=== PATIENT | male | born 1980 | race Caucasian/White ===

== ENCOUNTER → 2020-11-25 11:45 | Outpatient (BNVA) | payer OTHER, SELFPAY | PROVIDERS: Family Provider Family Medicine; Visit Provider Nurse Practitioner Family | DX: R19.7 Diarrhea, unspecified (principal); A09 Infectious gastroenteritis and colitis, unspecified | CPT/HCPCS: 80053; 82274; 85025; 87506; 87635 ==

== ENCOUNTER 2022-10-06 13:25 | Emergency (ER) | payer OTHER, SELFPAY ==
[2022-10-06 14:08] VITALS: BP 108/73; PULSE 72; RESP 16; TEMP 36.7; O2SAT 98; BMI 25.4
--- NOTE | 2022-10-06 17:10 | W.ED.DIZZY ---
HPI - Dizziness General: Chief Complaint: Dizziness Stated Complaint: light head, tightness in face Time Seen by Provider: 10/06/22 16:48 History of Present Illness: HPI Narrative: Patient's been having intermittent dizziness for over the last 9 weeks. Patient has seen urgent care who cleaned his ears out which helped for a day or 2, his primary care provider who put him on steroids which helped for a day or 2, and Dr. Sosa who ordered a bunch of tests and an MRI that he does not know the results of and has not had the MRI yet. Patient presents to the ER today wanting to know more about why he is dizzy and what all the causes could be because he is a worrier per patient. Review of Systems General: Reports: 10 or more systems reviewed and unremarkable except in HPI and below PFSH ED PFSH: Medical History Campylobacter gastroenteritis Social History Smoking and tobacco status: never smoked Second hand smoke exposure: No Smoking risk assessment/counseling performed?: No Alcohol intake: never Desire information about alcohol rehabilitation?: No Counseling given: No Substance/Drug Use: never Desire information about substance/drug rehabilitation?: No Counseling given: No Adopted: No Caregiver/support person: No Lives independently: Yes Household members: none Housing: House Marital status: Single Number of children: 0 Highest education level completed: High School Graduate service: No Current occupational status: employed Physical Exam Const: COMMON NORMALS: no acute distress, average body habitus, patient oriented x3, no limitations, healthy appearing, alert and well nourished HENMT: COMMON NORMALS: normocephalic, atraumatic, hearing grossly normal bilaterally, external ears normal, Normal external nose present and moist oral mucous membranes HEAD & SCALP: normocephalic and atraumatic NOSE: Normal external nose present EXTERNAL EAR: Yes external ears normal Eye: COMMON NORMALS: Equal, round and reactive pupils present, EOMs intact bilaterally, conjunctivae normal and no scleral icterus CONJUNCTIVA: Yes conjunctivae normal PUPIL: Yes Equal, round and reactive pupils present Neck/C-Spine: COMMON NORMALS: full ROM, no lymphadenopathy, supple, no meningeal signs, no JVD and Thyroid normal THYROID: Thyroid normal Chest: COMMONS NORMALS: normal inspection of the chest and normal palpation of entire chest wall Resp: COMMON NORMALS: normal respiratory effort, No retractions, No use of accessory muscles and clear to auscultation bilaterally AUSCULTATION: clear to auscultation bilaterally Cardio: COMMON NORMALS: no JVD, regular rate, regular rhythm, S1 normal heart sound present, S2 normal heart sound present, No gallops present (Cardio), No clicks present (Cardio), No murmurs present (Cardio) and No rub (Cardio) RATE: regular rate RHYTHM: regular rhythm HEART SOUNDS: S1 normal heart sound present and S2 normal heart sound present GI: COMMON NORMALS: Normal to inspection, nondistended, normoactive bowel sounds present, Soft to palpation, non-tender, No hepatosplenomegaly present and no masses PALPATION: Yes Soft to palpation and Yes No hepatosplenomegaly present : COMMON NORMALS: Yes no CVA tenderness BLADDER/KIDNEY EXAM: Yes no CVA tenderness Back/Pelvis: COMMON NORMALS: no CVA tenderness Neuro: COMMON NORMALS: patient oriented x3 SENSORIUM/ORIENTATION: Yes alert MENINGEAL SIGNS: Yes no meningeal signs Course Vital Signs: Vital signs: Vital Signs Temperature 98.1 F 10/06/22 14:08 Pulse Rate 66 10/06/22 17:47 Respiratory Rate 16 10/06/22 14:08 Blood Pressure 138/86 10/06/22 17:47 Pulse Oximetry 98 10/06/22 17:47 Oxygen Delivery Me thod Room Air 10/06/22 17:47 MDM - Dizziness Medical Decision Making Presents to the ER with complaints of vision changes and dizziness over the last 9 weeks. He has been seen multiple providers since then and had multiple test. And has an MRI scheduled. We will to come here to see if there is anything additional that we can do. Lab work was obtained and EKG all of which are benign. This was explained to the patient patient be discharged home to continue current treatment and work-up that is already in progress. Differential Diagnosis Unlikely adverse reaction to drug, benign paroxysmal positional vertigo, orthostatic hypotension, vertebral basilar insufficiency, cerebrovascular accident, acute vestibular neuronitis or transient cerebral ischemia Medical Records I reviewed the patient's medical records. Lab Data I reviewed the patient's lab results. 10/06/22 17:20 10/06/22 17:20 Laboratory Results WBC 6.80 10^3/uL (3.29-11.43) 10/06/22 17:20 RBC 4.80 10^6/uL (3.85-5.65) 10/06/22 17:20 Hgb 15.00 g/dL (11.27-16.99) 10/06/22 17:20 Hct 42.4 % (37-53) 10/06/22 17:20 MCV 88.3 fl (82-101) 10/06/22 17:20 MCH 31.3 pg (27-33) 10/06/22 17:20 MCHC 35.4 g/dL (30-55) 10/06/22 17:20 RDW 12.1 % (12.1-15.1) 10/06/22 17:20 Plt Count 258 10^3/cmm (157-399) 10/06/22 17:20 MPV 10.1 fL (7.4-10.4) 10/06/22 17:20 Neut % (Auto) 61.2 % 10/06/22 17:20 Lymph % (Auto) 26.5 % 10/06/22 17:20 Mclennan % (Auto) 8.5 % 10/06/22 17:20 Eos % (Auto) 2.8 % 10/06/22 17:20 Baso % (Auto) 0.9 % 10/06/22 17:20 Neut # (Auto) 4.16 10^3/uL (1.8-7.7) 10/06/22 17:20 Lymph # (Auto) 1.8 10^3/uL (0.8-4.8) 10/06/22 17:20 Mclennan # (Auto) 0.6 10^3/uL (0.2-0.9) 10/06/22 17:20 Eos # (Auto) 0.2 10^3/uL (0.0-0.8) 10/06/22 17:20 Baso # (Auto) 0.1 10^3/uL (0.0-0.1) 10/06/22 17:20 Nucleated RBC % (auto) 0 % 10/06/22 17:20 Nucleated RBCs # 0.0 /100WBC 10/06/22 17:20 Sodium 139 mmol/L (136-145) 10/06/22 17:20 Potassium 4.5 mmol/L (3.5-5.1) 10/06/22 17:20 Chloride 99 mmol/L (98-107) 10/06/22 17:20 Carbon Dioxide 30 mmol/L (22-29) H 10/06/22 17:20 Anion Gap 14.5 (5-19) 10/06/22 17:20 BUN 10 mg/dL (6-20) 10/06/22 17:20 Creatinine 0.8 mg/dL (0.7-1.2) 10/06/22 17:20 GFR Calculation 105.5 mL/min (90-130) 10/06/22 17:20 Glucose 87 mg/dL (65-115) 10/06/22 17:20 Calculated Osmolality 286 mOsm/kg (285-295) 10/06/22 17:20 Calcium 9.5 mg/dL (8.5-10.5) 10/06/22 17:20 Magnesium 2.1 mg/dL (1.7-2.3) 10/06/22 17:20 Total Bilirubin 0.6 mg/dL (0.15-1.2) 10/06/22 17:20 AST 20 U/L (0-40) 10/06/22 17:20 ALT 24 U/L (0-41) 10/06/22 17:20 Alkaline Phosphatase 79 U/L (40-130) 10/06/22 17:20 C-Reactive Protein 3.0 mg/L (0.0-4.9) 10/06/22 17:20 Total Protein 7.4 g/dL (6.6-8.7) 10/06/22 17:20 Albumin 4.7 g/dL (3.5-5.2) 10/06/22 17:20 Globulin 2.7 g/dL (1.3-4.6) 10/06/22 17:20 EKG Data EKG 1: I personally reviewed and interpreted this EKG as follows: EKG interpretation date: 10/06/22 EKG interpretation time: 17:13 Prior EKG tracings: not available for review Interpretation: EKG showed ventricular rate 64 bpm, KS interval 165, QRS duration 103, QTc of 394, sinus rhythm, no ST-T wave changes Discharge Plan Discharge Patient Disposition: Home Clinical Impression: Dizziness, Change in vision Condition: Stable Prescriptions: No Action metronidazole 500 mg tablet 500 mg PO TID Qty: 30 0RF dexamethasone sodium phosphate 4 mg/mL solution 8 mg IM ONCE Qty: 2 0RF prednisone 10 mg tablets,dose pack See Rx Instructions PO PER PKG DIR Qty: 21 0RF Rx Instructions: PO PER PKG DIR fluticasone propionate [Flonase Allergy Relief] 50 mcg/actuation spray,suspension 2 spray intranasal DAILY 30 Days Qty: 16 0RF Rx Instructions: administer into each nostril Discharge Orders: Discharge ED (Routine); Ordered 10/06/22 Ordered By: Ryley Roberts Referrals: Phillip Mei MD [Family Provider] - 1 week Patient Instructions: Dizziness, Vision Problems Activity Restrictions/Additional Instructions: Please follow-up with your PCP and continue current work-up is already in progress. 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
--- NOTE | 2022-10-06 17:13 | ECG_ITS ---
[facility] Test Date: 2022-10-06 Pat Name: Malik Will Department: Room: Gender: Male Scrap Carrier: : 1980 Requested By: Ryley Roberts Order Number: [id number] Irving MD: Reymundo Espinoza M.D. Measurements Intervals Spring Rate: 64 P: 56 NM: 165 QRS: 80 QRSD: 103 T: 34 QT: 384 QTc: 398 Interpretive Statements SINUS RHYTHM No previous ECG available for comparison Electronically Signed On 10-06-2022 17:37:31 CDT by Reymundo Espinoza M.D. [id number]
[2022-10-06 17:28] LABS: Basophils # 0.1 10^3/uL (0.0-0.1); Basophils % 0.9 %; Eosinophils # 0.2 10^3/uL (0.0-0.8); Eosinophils % 2.8 %; Hematocrit 42.4 % (37-53); Lymphocytes # 1.8 10^3/uL (0.8-4.8); Lymphocytes % 26.5 %; Mean Corpuscular HGB Conc 35.4 g/dL (30-55); Mean Corpuscular Hemoglobin 31.3 pg (27-33); Mean Corpuscular Volume 88.3 fl (82-101); Mean Platelet Volume 10.1 fL (7.4-10.4); Monocytes # 0.6 10^3/uL (0.2-0.9); Monocytes % 8.5 %; Neutrophils # 4.16 10^3/uL (1.8-7.7); Neutrophils % 61.2 %; Nucleated Red Blood Cells % 0 %; Platelet Count 258 10^3/cmm (157-399); Red Cell Distribution Width 12.1 % (12.1-15.1)
[2022-10-06 17:47] VITALS: BP 138/86; PULSE 66; O2SAT 98
[2022-10-06 18:00] LABS: Alanine Aminotransferase 24 U/L (0-41); Albumin Level 4.7 g/dL (3.5-5.2); Alkaline Phosphatase 79 U/L (40-130); Anion Gap 14.5 (5-19); Aspartate Amino Transferase 20 U/L (0-40); Blood Urea Nitrogen 10 mg/dL (6-20); Calcium 9.5 mg/dL (8.5-10.5); Carbon Dioxide 30 mmol/L (22-29); Chloride 99 mmol/L (98-107); Globulin 2.7 g/dL (1.3-4.6); Glomerular Filtration Rate 105.5 mL/min (90-130); Glucose 87 mg/dL (65-115); Magnesium 2.1 mg/dL (1.7-2.3); Osmolality Calculated 286 mOsm/kg (285-295); Potassium 4.5 mmol/L (3.5-5.1); Sodium 139 mmol/L (136-145); Total Bilirubin 0.6 mg/dL (0.15-1.2); Total Protein 7.4 g/dL (6.6-8.7)
[2022-10-06 18:40] VITALS: BP 138/86; PULSE 66; O2SAT 99
== END 2022-10-06 18:42 | disposition home or self-care (01) ==
PROVIDERS: Emergency Provider Emergency Medicine; Family Provider Family Medicine
DX: R42 Dizziness and giddiness (principal); H53.9 Unspecified visual disturbance
CPT/HCPCS: 36415; 80053; 83735; 85025; 86140; 93005; 99284

== ENCOUNTER 2022-10-28 08:12 | Outpatient (CLI) | payer OTHER, SELFPAY ==
--- NOTE | 2022-10-28 08:45 | MR_ITS ---
WS: [id number] MRI BRAIN WITHOUT CONTRAST HISTORY: H53.8 - Other visual disturbances COMPARISON: None available. TECHNIQUE: Diffusion imaging, multiplanar T1, T2 and FLAIR imaging obtained. No evidence for acute infarct or hemorrhage. Chan-white matter differentiation is normal. There are f ew tiny subcortical foci within the white matter of the frontal lobes. Nonspecific for patient of thi s age. No prior infarct. No remote or acute infarcts are volume loss. Ventricles and extra-axial spaces are normal. No inferior displacement of cerebellar tonsils. The sella turcica and pituitary gland are unremarkabl e. Dural venous sinuses and [place] of [place] demonstrate no abnormality on this unenhanced studies. Paranasal sinuses: Very tiny mucous retention cyst or mucoperiosteal soft tissue thickening in the ma xillary sinuses. No air-fluid levels. Mastoid air cells: Normal. Calvarium and scalp: Intact. IMPRESSION: 1. No acute infarcts or edema. 2. No hydrocephalus. 3. No mass or signal abnormality at the cerebellopontine angles.
== END 2022-10-28 08:13 | disposition home or self-care (01) ==
PROVIDERS: PCP Nurse Practitioner Family; Visit Provider Nurse Practitioner Family
DX: H53.8 Other visual disturbances (principal)
CPT/HCPCS: 70551